=== PATIENT | male | born 1980 | race Asian ===

== ENCOUNTER 2025-01-04 10:54 | Emergency (ER) | payer OTHER | END 2025-01-04 12:40 | disposition home or self-care (01) | LOC: MW.ED 10:54 | DX: S00.11XA Contusion of right eyelid and periocular area, initial encounter (principal); H54.7 Unspecified visual loss; Z79.899 Other long term (current) drug therapy; X58.XXXA Exposure to other specified factors, initial encounter | CPT/HCPCS: 70450; 70450-26; 70486; 70486-26; 99283 ==